=== PATIENT | male | born 1975 | race African-American/Black ===

== ENCOUNTER 2021-01-15 09:12 | Emergency (ER) | payer OTHER ==
[~2021-01-15] VITALS: Ht 177.8 cm; Wt 95.3 kg
[2021-01-15 10:15] VITALS: TEMP 98.8
[2021-01-15 10:28] LABS: PLATELET COUNT 244 K/uL (142-355)
[2021-01-15 10:31] LABS: POTASSIUM 4.1 mmol/L (3.6-5.2); SODIUM 140 mmol/L (136-145)
[2021-01-15 10:38] LABS: PARTIAL THROMBOPLASTIN TIME 23.9 SECONDS (24.5-33.6)
[2021-01-15 12:11] VITALS: BP 177/88
== END 2021-01-15 12:12 | disposition home or self-care (01) ==
LOC: ED 09:50
PROVIDERS: Hospitalist
DX: S20.212A Contusion of left front wall of thorax, initial encounter (principal); Z77.098 Contact with and (suspected) exposure to other hazardous, chiefly nonmedicinal, chemicals; V65 Occupant of heavy transport vehicle injured in collision with railway train or railway vehicle; Y92.89 Other specified places as the place of occurrence of the external cause
CPT/HCPCS: 80053; 82550; 83605; 83880; 84484; 85027; 85610; 85730; 93005; 96360; 99284; J1885